=== PATIENT | male | born 1950 | race Two or more races ===

== ENCOUNTER 2016-10-25 11:09 | Emergency (ER) | payer MEDICAID ==
[~2016-10-25] VITALS: Ht 188 cm; Wt 111.1 kg
--- NOTE | 2016-10-25 11:16 | NUR ---
PT TO ER BED 10. C/O RUQ ABDOMINAL PAIN AND BLOATING X 15 DAYS. WAS SEEN AT [facility] FOR SAME REASON. DENIES N/V/D. GOWNED AND PLACED ON MONITOR. NAD NOTED. AWAITING MD RAMÍREZ.
--- NOTE | 2016-10-25 12:09 | NUR ---
DR HERNANDEZ AT BEDSIDE FOR EVAL.
[2016-10-25 12:37] VITALS: BP 128/77
--- NOTE | 2016-10-25 12:37 | NUR ---
Patient discharged to home in stable condition. Written and verbal after care instructions given. Patient verbalizes understanding of instruction.
== END 2016-10-25 12:38 | disposition home or self-care (01) ==
LOC: ER 11:14
DX: K59.00 Constipation, unspecified (principal); I10 Essential (primary) hypertension
CPT/HCPCS: A4606; Z7610